=== PATIENT | male | born 1980 | race Caucasian/White ===

== ENCOUNTER 2019-01-11 15:42 | Emergency (ER) | payer SELFPAY ==
[~2019-01-11] VITALS: Ht 165.1 cm; Wt 108.9 kg
[2019-01-11 16:16] VITALS: BP 159/85
--- NOTE | 2019-01-11 16:20 | NUR ---
PATIENT TO THE LOBBY. NO DISTRESS. NO BED AVAIL. AT THIS TIME
--- NOTE | 2019-01-11 19:15 | NUR ---
1914---PATIENT LEFT WITHOUT BEING SEEN BY DR. MARK. NO FURTHER CARE PROVIDED FOR PATIENT. 1919---2ND CALL, NO ANSWER. 1924---3RD CALL, NO ANSWER.
== END 2019-01-11 19:15 | disposition left against medical advice (07) ==
LOC: MED 15:42
DX: R59.9 Enlarged lymph nodes, unspecified (principal); Z53.21 Procedure and treatment not carried out due to patient leaving prior to being seen by health care provider

== ENCOUNTER 2019-01-16 17:14 | Emergency (ER) | payer MEDICAID ==
[~2019-01-16] VITALS: Ht 160 cm; Wt 108.9 kg
[2019-01-16 17:57] VITALS: BP 150/105
--- NOTE | 2019-01-16 20:39 | NUR ---
PT AMBULATED TO BED #8, GAVE REPORT TO RN
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
--- NOTE | 2019-01-16 21:00 | NUR ---
Dr. Booth evaluating patient at bedside.
--- NOTE | 2019-01-16 22:16 | NUR ---
PT RESTING PATIENTLY AT THIS TIME. NO SIGNS OF ACUTE DISTRESS AT THIS TIME
--- NOTE | 2019-01-16 22:40 | NUR ---
PT GOING TO CT BY WHEEL CHAIR
--- NOTE | 2019-01-16 22:49 | NUR ---
PT IS BACK FROM CT
[2019-01-16 23:33] VITALS: BP 150/105
--- NOTE | 2019-01-16 23:34 | NUR ---
Patient discharged with v/s stable. Written and verbal after care instructions given and explained. Patient alert, oriented and verbalized understanding of instructions. Ambulatory with steady gait. All questions addressed prior to discharge. ID band removed. Patient advised to follow up with PMD. Rx of MOTRIN 800MG, CLINDAMYCIN 3OOMG given. Patient educated on indication of medication including possible reaction and side effects. Opportunity to ask questions provided and answered.
== END 2019-01-16 23:34 | disposition home or self-care (01) ==
LOC: MED 17:14
DX: J02.9 Acute pharyngitis, unspecified (principal); H92.01 Otalgia, right ear
CPT/HCPCS: 70486; 99284

== ENCOUNTER 2019-08-19 15:12 | Emergency (ER) | payer MEDICAID ==
[~2019-08-19] VITALS: Ht 167.6 cm; Wt 112.0 kg
[2019-08-19 15:18] VITALS: BP 153/98
--- NOTE | 2019-08-19 15:52 | NUR ---
Derrell sandhu in [facility] - 08/19/19 at 1557 by [email or web address] T AMB TO BED 4
--- NOTE | 2019-08-19 15:52 | NUR ---
PT AMB TO BED 4
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
--- NOTE | 2019-08-19 16:03 | NUR ---
Patient being evaluated by DR PALUMBO at bedside.
--- NOTE | 2019-08-19 16:18 | NUR ---
Patient being evaluated by JULIA GIBSON at bedside.
[2019-08-19] MEDS ORDERED: HYDROcodone/APAP 5/325 MG 1 TAB TAB PO ONE (16:20)
--- NOTE | 2019-08-19 16:25 | NUR ---
PT TAKEN TO CT
--- NOTE | 2019-08-19 17:57 | NUR ---
Patient discharged with v/s stable. Written and verbal after care instructions given and explained. Patient alert, oriented and verbalized understanding of instructions. Ambulatory with steady gait. All questions addressed prior to discharge. ID band removed. Patient advised to follow up with PMD. Rx of BACITRACIN, FLEXERIL, MOTRIN given. Patient educated on indication of medication including possible reaction and side effects. Opportunity to ask questions provided and answered.
[2019-08-19 17:58] VITALS: BP 121/76
== END 2019-08-19 17:57 | disposition home or self-care (01) ==
LOC: MED 15:12
DX: S00.83XA Contusion of other part of head, initial encounter (principal); M54.5 Low back pain; R10.9 Unspecified abdominal pain; W19.XXXA Unspecified fall, initial encounter; Y93.89 Activity, other specified; Y92.89 Other specified places as the place of occurrence of the external cause; Y99.8 Other external cause status
CPT/HCPCS: 70486; 99284